=== PATIENT | male | born 2000 | race Caucasian/White ===

== ENCOUNTER 2019-02-14 21:03 | Emergency (ER) | payer OTHER ==
[~2019-02-14] VITALS: Ht 185.4 cm; Wt 120.5 kg
[2019-02-14] MEDS ORDERED: LIDOCAINE 1% 10 ML VIAL ONE (22:15)
[2019-02-14] MEDS ORDERED: POVIDONE-IODINE 10% 15 ML SOLUTION UD ONE (22:58)
[2019-02-14] MEDS: PERTUSS(ACELL),DIPH,TET VAC/PF 0.5 ML VIAL IM ONE (23:52)
[2019-02-14 23:54] VITALS: BP 137/84
== END 2019-02-15 00:14 | disposition home or self-care (01) ==
LOC: EMS 21:03
DX: S61.411A Laceration without foreign body of right hand, initial encounter (principal); W25.XXXA Contact with sharp glass, initial encounter; Y93.89 Activity, other specified; Y92.89 Other specified places as the place of occurrence of the external cause; Y99.8 Other external cause status
CPT/HCPCS: 12001; 90471; 90715; J3490